=== PATIENT | male | born 1975 | race Caucasian/White ===

== ENCOUNTER → 2022-09-05 | Outpatient (CLI) | payer BC, SELFPAY ==
--- NOTE | 2022-09-05 11:15 | LES_PTH ---
PATIENT: LIYAH WINCHESTER LOC: [facility] U#:[id number] AGE/SX: 47/M ROOM: RE09/05/[address]: Dr. Ede Ocampo MD : 1975 BED: DIS: 09/05/2022 SPEC #: [id number] RECD: 09/05/22 15:07 STATUS: ZAINA DIANAKemal #: [id number] LISA: 09/05/22 11:[address]: Ede Ocampo DEPT: SURGICAL PATHOLOGY RECD BY: Rbui Curtis Tissues: Skin of eyelid, NOS Procedures: Surgery Specimen Level IV HEADER OPERATION: Lesion removal left upper lid PRE-OP DIAGNOSIS: Lesion left upper lid TISSUE SUBMITTED: Left upper lid MICROSCOPIC DIAGNOSIS Lesion of left upper eyelid, biopsy: Benign fibroepithelial polyp, mildly inflamed. AM:velvet 09/07/2022 MICROSCOPIC DESCRIPTION Slides are reviewed. GROSS DESCRIPTION Received in fixative is one container labeled with the patient's name and designated left upper lid lesion. The specimen consists of a single irregular fragment of chandler tissue measuring 0.6 x 0.5 x 0.2 cm. The specimen is totally submitted in one cassette. / AM:velvet 09/06/2022 TC:5 CPT: 24138
== END | disposition home or self-care (01) ==
LOC: LABSPEC 16:00
PROVIDERS: Referring Provider Ophthalmology; Visit Provider Ophthalmology
DX: H02.89 Other specified disorders of eyelid (principal)
CPT/HCPCS: 88305